=== PATIENT | female | born 1975 | race Caucasian/White ===

== ENCOUNTER 2018-08-06 07:49 | Day surgery (SDC) | payer OTHER ==
[~2018-08-06] VITALS: Ht 154.9 cm; Wt 57.7 kg
[2018-08-06] MEDS ORDERED: OMEPRAZOLE (09:09)
[2018-08-06] MEDS ORDERED: GABAPENTIN (09:09)
[2018-08-06 09:19] VITALS: Ht 154.9 cm; Wt 57.7 kg
[2018-08-06 09:55] VITALS: BP 135/65; PULSE 73; RESP 14
[2018-08-06] MEDS ORDERED: MIDAZOLAM 1 MG/ML 2 ML INJ ONE (09:58)
[2018-08-06] MEDS ORDERED: PROPOFOL 40 ML ONE (09:58)
--- NOTE | 2018-08-06 10:11 | PREAC ---
Date/Time of Note Date/Time of Note DATE: 08/06/18 TIME: 10:09 Anesthesia Eval and Record Evaluation Time Pre-Procedure Interview DATE: 08/06/18 TIME: 10:09 Age 42 Sex female NPO: 8 hrs Preoperative diagnosis Abdominal Pain, Rectal bleeding Planned procedure EGD, Colonoscopy Past Medical History Past Medical History: Includes Pulm: Other (hx of Bronchitis) GI: GERD Surgery & Anesthesia Issues No known issue Meds Anticoagulation: No Beta Jeremy within 24 hr: No Reason Beta Jeremy not given: Pt. not on B-Jeremy Reported Medications [Omeprazole] No Conflict Check 08/06/18 [Gabapentin] No Conflict Check 08/06/18 Meds reviewed: Yes Allergies Coded Allergies: No Known Allergy (Unverified , 08/06/18) Allergies Reviewed: Yes Labs/Studies Labs Reviewed: Reviewed by anesthesiologist test: Negative Studies: ECG (n/a), CXR (n/a) Pre-procedure Exam Last vitals Vital Signs Date Temp Pulse Resp B/P (MAP) Pulse Ox O2 O2 Flow FiO2 Time Delivery Rate 08/06/18 97.8 73 14 135/65 100 Room Air 09:55 (88) Airway: Adequate mouth opening, Adequate thyromental dist Mallampati: Mallampati II Teeth: Normal Lung: Normal Heart: Normal ASA Physical Status ASA physical status: 2 Emergency: None Planned Anesthetic General/MAC: MAC Planned Pain Management Parenteral pain med Pre-operative Attestations Prior to commencing anesthesia and surgery, the patient was re-evaluated, there was verification of: *The patient's identity *The results of appropriate recent lab work and preoperative vital signs *The above evaluation not changing prior to induction *Anesthetic plan, risk benefits, alternative and complications discussed with patient/family; questions answered; patient/family understands, accepts and wishes to proceed. OMER BHAGAT MD Aug 06, 2018 10:11
[2018-08-06] MEDS ORDERED: PROPOFOL 20 ML ONE (11:06)
--- NOTE | 2018-08-06 11:10 | PAC ---
Date/Time of Note Date/Time of Note DATE: 08/06/18 TIME: 11:10 Post-Anesthesia Notes Post-Anesthesia Note Last documented vital signs Vital Signs Date Temp Pulse Resp B/P (MAP) Pulse Ox O2 O2 Flow FiO2 Time Delivery Rate 08/06/18 97.8 73 14 135/65 100 Room Air 11:05 (88) Activity: WNL Respiratory function: WNL Cardiovascular function: WNL Mental status: Baseline Pain reasonably controlled: Yes Hydration appropriate: Yes Nausea/Vomiting absent: Yes OMER BHAGAT MD Aug 06, 2018 11:10
== END 2018-08-06 12:57 | disposition home or self-care (01) ==
LOC: GIL 07:49
PROVIDERS: ATTEND Internal Medicine Gastroenterology
DX: Z12.11 Encounter for screening for malignant neoplasm of colon (principal); K31.7 Polyp of stomach and duodenum; K64.9 Unspecified hemorrhoids; D12.6 Benign neoplasm of colon, unspecified
CPT/HCPCS: 43239; 45380; 88305; 88312; 88313; J2250; Z7610